=== PATIENT | female | born 1995 ===

== ENCOUNTER 2018-04-17 09:45 | Emergency (ER) | payer MEDICAID ==
[~2018-04-17] VITALS: Ht 160 cm; Wt 52.2 kg
[2018-04-17] MEDS ORDERED: PROZAC10 MG ORAL (09:55)
[2018-04-17] MEDS ORDERED: Sodium Chloride 500ML 500 ML IV ONE (10:05)
[2018-04-17] MEDS ORDERED: Metoclopramide 10mg/2ml Inj IVP ONE (10:15)
[2018-04-17 10:23] VITALS: BP 107/54
--- NOTE | 2018-04-17 10:29 | Emergency Room Report ---
History of Present Illness General Chief Complaint: Headache Source: Patient Present Illness HPI 22-year-old female presents ED complaining of headache 3 days. Throbbing, 6 out of 10, localized behind the left eye. Nonradiating. Denies neck stiffness. Notes photophobia. Notes nausea, denies vomiting. States that she had a similar headache last week which then resolved. No other aggravating relieving factors. Denies any other associated symptoms Allergies: Coded Allergies: DIPHENHYDRAMINE (Verified Allergy, Unknown, 04/17/18) LEFT ARM NUMBNESS Patient History Past Medical History: none Past Surgical History: none Pertinent Family History: none Social History: Denies: smoking, alcohol use, drug use Last Menstrual Period: 03/21/18 Now: No Immunizations: UTD Reviewed Nursing Documentation: PMH: Agreed; PSxH: Agreed Nursing Documentation-PMH Hx Asthma: Yes - PNA 12/2017 Review of Systems All Other Systems: negative except mentioned in HPI Physical Exam Vital Signs Date Time Temp Pulse Resp B/P (MAP) Pulse Ox O2 Delivery O2 Flow Rate FiO2 04/17/18 09:52 98.6 67 16 102/64 97 Room Air 98.6 Sp02 EP Interpretation: reviewed, normal General Appearance: no apparent distress, alert, GCS 15, non-toxic Head: normocephalic, atraumatic Eyes: bilateral eye normal inspection, bilateral eye PERRL ENT: hearing grossly normal, normal pharynx, no angioedema, normal voice Neck: full range of motion, supple, no meningismus, supple/symm/no masses Respiratory: chest non-tender, lungs clear, normal breath sounds, speaking full sentences Cardiovascular #1: regular rate, rhythm, no edema Cardiovascular #2: 2+ carotid (R), 2+ carotid (L), 2+ radial (R), 2+ radial (L) , 2+ dorsalis pedis (R), 2+ dorsalis pedis (L) Gastrointestinal: normal bowel sounds, non tender, soft, non-distended, no guarding, no rebound Rectal: deferred Genitourinary: normal inspection, no CVA tenderness Musculoskeletal: back normal, gait/station normal, normal range of motion, non- tender Neurologic: alert, oriented x3, responsive, motor strength/tone normal, sensory intact, speech normal Psychiatric: judgement/insight normal, memory normal, mood/affect normal, no suicidal/homicidal ideation Reflexes: 3+ bicep (R), 3+ bicep (L), 3+ tricep (R), 3+ tricep (L), 3+ knee (R) , 3+ knee (L) Skin: normal color, no rash, warm/dry, well hydrated Lymphatic: no adenopathy Medical Decision Making Diagnostic Impression: Primary Impression: Headache Qualified Codes: R51 - Headache Additional Impression: Marijuana abuse ER Course Hospital Course 22 yo F presents to ED c/o headache, nausea Differential diagnoses include: tension headache, migraine, dehydration Clinical course Patient placed on stretcher. After initial history and physical I ordered labs , IV fluids, Reglan Labs reviewed- electrolytes okay, no leukocytosis, hemoglobin/hematocrit stable , Utox + THC During treatment patient became very anxious and stated she wants to leave. States that she "has to get out of here". Understands the risks of leaving. Patient has competency to make her own decisions. Signed AMA form. Patient observed with no nuchal rigidity. No focal neurological deficits. i. I feel this is a highly complex case requiring extensive working including EKG/Rhythm strip, Xray/CT/US, Blood/urine lab work, repeat exams while in ED, and administration of strong opiates/narcotics for pain control, admission to hospital or close patient follow up. Diagnosis - headache, marijuana abuse patient left AMA Labs Test 04/17/18 10:15 White Blood Count 7.3 K/UL (4.8-10.8) Red Blood Count 4.48 M/UL (4.20-5.40) Hemoglobin 12.7 G/DL (12.0-16.0) Hematocrit 39.1 % (37.0-47.0) Mean Corpuscular Volume 87 FL (80-99) Mean Corpuscular Hemoglobin 28.4 PG (27.0-31.0) Mean Corpuscular Hemoglobin Concent 32.6 G/DL (32.0-36.0) Red Cell Distribution Width 11.7 % (11.6-14.8) Platelet Count 236 K/UL (150-450) Mean Platelet Volume 6.0 FL (6.5-10.1) Neutrophils (%) (Auto) 73.6 % (45.0-75.0) Lymphocytes (%) (Auto) 16.7 % (20.0-45.0) Monocytes (%) (Auto) 5.6 % (1.0-10.0) Eosinophils (%) (Auto) 3.0 % (0.0-3.0) Basophils (%) (Auto) 1.2 % (0.0-2.0) Urine Color Yellow Urine Appearance Slightly cloudy Urine pH 6 (4.5-8.0) Urine Specific [place] 1.020 (1.005-1.035) Urine Protein Negative (NEGATIVE) Urine Glucose (UA) Negative (NEGATIVE) Urine Ketones 4+ (NEGATIVE) Urine Occult Blood 2+ (NEGATIVE) Urine Nitrite Negative (NEGATIVE) Urine Bilirubin Negative (NEGATIVE) Urine Urobilinogen Normal MG/DL (0.0-1.0) Urine Leukocyte Esterase 1+ (NEGATIVE) Urine RBC 2-4 /HPF (0 - 2) Urine WBC 5-10 /HPF (0 - 2) Urine Squamous Epithelial Cells Many /LPF (NONE/OCC) Urine Bacteria Few /HPF (NONE) Urine HCG, Qualitative Negative (NEGATIVE) Sodium Level 141 MMOL/L (136-145) Potassium Level 3.4 MMOL/L (3.5-5.1) Chloride Level 105 MMOL/L (98-107) Carbon Dioxide Level 25 MMOL/L (21-32) Anion Gap 11 mmol/L (5-15) Blood Urea Nitrogen 10 mg/dL (7-18) Creatinine 0.7 MG/DL (0.55-1.30) Estimat Glomerular Filtration Rate > 60 mL/min (>60) Glucose Level 79 MG/DL (74-106) Calcium Level 8.6 MG/DL (8.5-10.1) Total Bilirubin 0.6 MG/DL (0.2-1.0) Aspartate Amino Transf (AST/SGOT) 17 U/L (15-37) Alanine Aminotransferase (ALT/SGPT) 17 U/L (12-78) Alkaline Phosphatase 44 U/L (46-116) Total Protein 8.4 G/DL (6.4-8.2) Albumin 4.4 G/DL (3.4-5.0) Globulin 4.0 g/dL Albumin/Globulin Ratio 1.1 (1.0-2.7) Urine Opiates Screen Negative (NEGATIVE) Urine Barbiturates Screen Negative (NEGATIVE) Phencyclidine (PCP) Screen Negative (NEGATIVE) Urine Amphetamines Screen Negative (NEGATIVE) Urine Benzodiazepines Screen Negative (NEGATIVE) Urine Cocaine Screen Negative (NEGATIVE) Urine Marijuana (THC) Screen Positive (NEGATIVE) Serum Alcohol < 3 mg/dL Last Vital Signs Date Time Temp Pulse Resp B/P (MAP) Pulse Ox O2 Delivery O2 Flow Rate FiO2 04/17/18 10:23 86 16 107/54 100 Room Air 04/17/18 09:52 98.6 98.6 Status: improved Disposition: AGAINST MEDICAL ADVICE Condition: Stable Fermin Mora MD Apr 17, 2018 10:29
[2018-04-17 10:42] LABS: BASOPHILS % (AUTO) 1.2 % (0.0-2.0); HEMATOCRIT 39.1 % (37.0-47.0); HEMOGLOBIN 12.7 G/DL (12.0-16.0); LYMPHOCYTES % (AUTO) 16.7 % (20.0-45.0); MEAN CORPUSCULAR VOLUME 87 FL (80-99); MONOCYTES % (AUTO) 5.6 % (1.0-10.0); NEUTROPHILS % (AUTO) 73.6 % (45.0-75.0); PLATELET COUNT 236 K/UL (150-450); RED BLOOD COUNT 4.48 M/UL (4.20-5.40); RED CELL DISTRIBUTION WIDTH 11.7 % (11.6-14.8); WHITE BLOOD COUNT 7.3 K/UL (4.8-10.8)
[2018-04-17 10:43] LABS: APPEARANCE,URINE SLIGHTLY CLOUDY; BILIRUBIN, URINE NEGATIVE (NEGATIVE); GLUCOSE, URINE (UA) NEGATIVE (NEGATIVE); KETONES,URINE 4+ (NEGATIVE); LEUKOCYTE ESTERASE ,URINE 1+ (NEGATIVE); NITRITE,URINE NEGATIVE (NEGATIVE); PH,URINE 6 (4.5-8.0); PROTEIN,URINE NEGATIVE (NEGATIVE); UROBILINOGEN,URINE NORMAL MG/DL (0.0-1.0)
[2018-04-17 10:46] LABS: COLOR,URINE YELLOW
[2018-04-17 11:00] VITALS: BP 107/54
[2018-04-17 11:00] LABS: ANION GAP 11 mmol/L (5-15); CARBON DIOXIDE 25 MMOL/L (21-32); CHLORIDE 105 MMOL/L (98-107); POTASSIUM 3.4 MMOL/L (3.5-5.1); SODIUM 141 MMOL/L (136-145)
[2018-04-17 11:02] LABS: ALANINE AMINOTRANSFERASE 17 U/L (12-78); ALBUMIN 4.4 G/DL (3.4-5.0); ALBUMIN/GLOBULIN RATIO 1.1 (1.0-2.7); ALKALINE PHOSPHATASE 44 U/L (46-116); ASPARTATE AMINO TRANSFERASE 17 U/L (15-37); BILIRUBIN,TOTAL 0.6 MG/DL (0.2-1.0); BLOOD UREA NITROGEN 10 mg/dL (7-18); CALCIUM 8.6 MG/DL (8.5-10.1); CREATININE 0.7 MG/DL (0.55-1.30)
== END 2018-04-17 11:00 | disposition left against medical advice (07) ==
LOC: EMR 10:23
DX: R51 Headache (principal); F12.10 Cannabis abuse, uncomplicated; J45.909 Unspecified asthma, uncomplicated; Z88.8 Allergy status to other drugs, medicaments and biological substances
CPT/HCPCS: 36415; 80053; 80307; 80329; 81003; 81025; 85025; 96374; 99283; J2765; J7040; 96360